=== PATIENT | male | born 1970 | race Caucasian/White ===

== ENCOUNTER 2019-02-02 15:33 | Emergency (ER) | payer MEDICAID ==
[~2019-02-02] VITALS: Ht 177.8 cm; Wt 86.2 kg
[2019-02-02 15:33] VITALS: BP_SYST 146
--- NOTE | 2019-02-02 15:33 | NUR ---
BROUGHT BACK TO BED #3 AND TRIAGED. REPORT GIVEN TO LYUDMILA
--- NOTE | 2019-02-02 15:50 | NUR ---
CALLED [facility]AC[facility] TO [facility] AND SPOKE WITH OFFICER JOAN, INFORMATION GIVEN AND THEY WILL SEND AN OFFICER OVER WHEN AVAILABLE.
--- NOTE | 2019-02-02 15:57 | NUR ---
EDITH TOLBERT AT BEDSIDE FOR EVALUATION
[2019-02-02] MEDS ORDERED: KETOROLAC TROMETHAMINE 30 MG VIAL IM ONE (16:00)
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
--- NOTE | 2019-02-02 16:04 | NUR ---
Pt to Radiology with Radiology staff.
--- NOTE | 2019-02-02 16:54 | NUR ---
Note undone in EDM - 02/02/19 at 1656 by [email or web address] Patient given written and verbal discharge instructions and verbalizes understanding. ER MD Cowan discussed with patient the results and treatment provided. Patient in stable condition. ID arm band removed. Rx of Naprosyn, Augmentin given. Patient educated on pain management and to follow up with PMD. Pain Scale 0. Opportunity for questions provided and answered. Medication side effect fact sheet provided.
--- NOTE | 2019-02-02 16:54 | NUR ---
Patient given written and verbal discharge instructions and verbalizes understanding. ER EDITH Langley discussed with patient the results and treatment provided. Patient in stable condition. ID arm band removed. Rx of Naprosyn, Augmentin given. Patient educated on pain management and to follow up with PMD. Pain Scale 0. Opportunity for questions provided and answered. Medication side effect fact sheet provided.
[2019-02-02 16:55] VITALS: BP_SYST 137
--- NOTE | 2019-02-02 16:55 | NUR ---
Patient given written and verbal discharge instructions and verbalizes understanding. ER MD Cowan discussed with patient the results and treatment provided. Patient in stable condition. ID arm band removed. Rx of Naprosyn, Augmentin given. Patient educated on pain management and to follow up with PMD. Pain Scale 0/10. Opportunity for questions provided and answered. Medication side effect fact sheet provided.
== END 2019-02-02 16:55 | disposition home or self-care (01) ==
LOC: SED 15:33
DX: S61.234A Puncture wound without foreign body of right ring finger without damage to nail, initial encounter (principal); S20.212A Contusion of left front wall of thorax, initial encounter; S30.0XXA Contusion of lower back and pelvis, initial encounter; E78.5 Hyperlipidemia, unspecified; F41.9 Anxiety disorder, unspecified; Y04.0XXA Assault by unarmed brawl or fight, initial encounter; Y93.89 Activity, other specified; Y92.89 Other specified places as the place of occurrence of the external cause; Y99.8 Other external cause status
CPT/HCPCS: 71045; 72100; 73090; 73130; 96372; 99283; J1885

== ENCOUNTER 2019-09-25 22:35 | Emergency (ER) | payer MEDICAID ==
--- NOTE | 2019-09-25 22:50 | NUR ---
Pt did not wish to be seen/triaged. Patient left without being seen. ER MD aware
== END 2019-09-25 22:50 | disposition left against medical advice (07) ==
LOC: SED 22:35
DX: H57.89 Other specified disorders of eye and adnexa (principal); Z53.21 Procedure and treatment not carried out due to patient leaving prior to being seen by health care provider